=== PATIENT | female | born 1985 | race Caucasian/White ===

== ENCOUNTER 2020-05-05 17:06 | Emergency (ER) | payer BC, SELFPAY ==
[2020-05-05] MEDS ORDERED: DIPHENHYDRAMINE 50 MG/ML VIAL ONE (19:55)
[2020-05-05] MEDS ORDERED: METOCLOPRAMIDE 10 MG/2mL INJ ONE (19:55)
[2020-05-05] MEDS ORDERED: dexAMETHasone 10 MG/ML VIAL ONE (19:56)
[2020-05-05] MEDS ORDERED: ONDANSETRON 4 MG/2 ML VIAL ONE (19:56)
[2020-05-05] MEDS ORDERED: NA CHLORIDE 0.9% 1,000 ML ONE (19:56)
[2020-05-05 20:12] LABS: Absolute Lymphocytes (CBC) 1.4 K/uL (0.7-4.9); Basophils % 0.5 % (0-1.3); Hematocrit 42.3 % (36.0-45.0); Lymphocytes % 12.1 % (15.3-44.8); MPV 7.5 fL (7.6-11.3); RBC Red Blood Cell Count 5.07 M/uL (3.86-4.86)
[2020-05-05 20:28] LABS: BUN Blood Urea Nitrogen 8 mg/dL (7-18); Bicarbonate 27 mmol/L (21-32); Glucose Level 173 mg/dL (74-106); Potassium 3.8 mmol/L (3.5-5.1); Sodium Level 139 mmol/L (136-145)
[2020-05-05 20:31] LABS: Urine Blood 1+ (Negative); Urine Glucose NEGATIVE (Negative); Urine Protein 1+ (NEG); Urine Specific Gravity 1.025 (1.005-1.030); Urine Specific Gravity/Preg 1.025 (1.005-1.030)
[2020-05-05 20:56] LABS: Urine Amorphous Sediment 3+ /HPF (NONE SEEN); Urine Bacteria >50 /HPF (<20); Urine Mucus 2+ /HPF (NONE SEEN); Urine RBC 20-50 /HPF (NONE SEEN)
--- NOTE | 2020-05-05 21:18 | RAD REPORT ---
EXAM DESCRIPTION: CT - Head Brain Wo Cont - 05/05/2020 9:11 pm CLINICAL HISTORY: elevated blood pressure;Headache COMPARISON: HEAD BRAIN W O CONTRAST dated 03/14/2014 TECHNIQUE: Axial 5 mm thick images of the head were obtained without IV contrast. All CT scans are performed using dose optimization technique as appropriate and may include automated exposure control or mA/KV adjustment according to patient size. FINDINGS: No intracranial hemorrhage, mass, edema or shift of mid-line structures. No acute infarcti on changes seen. No abnormal extra-axial fluid collections. Ventricles are normal. Mastoid air cells and visualized portions of the paranasal sinuses are clear. No acute bony findings. No significant change from comparison. IMPRESSION: Negative non-contrast CT head examination.
--- NOTE | 2020-05-05 21:42 | ER ---
Nurse's Notes [facility] Name: Caleb Cuevas Age: 34 yrs Sex: Female : 1985 Arrival Date: 05/05/2020 Time: 17:09 Bed 14 Private MD: Diagnosis: Headache;Urinary tract infection, site not specified Presentation: 05/05 17:43 Chief complaint: Patient states: Headache, pressure behind the R eye, stabbing pain ca1 behind the R eyeball. Causing me to throw up. Today it started around 1300 - 1400. I had a migraine yesterday but it went away. Been here before for exactly the same thing, and am here now before it gets worse. Coronavirus screen: Client denies travel out of the [place] in the last 14 days. nausea, vomiting. Client presents with at least one sign or symptom that may indicate coronavirus-19. Standard/surgical mask placed on the client. Provider contacted for isolation considerations. Ebola Screen: Patient negative for fever greater than or equal to 101.5 degrees Fahrenheit, and additional compatible Ebola Virus Disease symptoms Patient denies exposure to infectious person. Patient denies travel to an Ebola-affected area in the 21 days before illness onset. No symptoms or risks identified at this time. Initial Sepsis Screen: Does the patient meet any 2 criteria? No. Patient's initial sepsis screen is negative. Does the patient have a suspected source of infection? No. Patient's initial sepsis screen is negative. Risk Assessment: Do you want to hurt yourself or someone else? Patient reports no desire to harm self or others. Onset of symptoms was May 05, 2020. 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 - Social history:: Smoking status: Patient denies any tobacco usage or history of. Assessment: 19:10 Pain: Complains of pain in right eye Pain radiates to right occipital area Pain jb4 currently is 8 out of 10 on a pain scale. Neuro: Level of Consciousness is awake, alert, obeys commands, Oriented to person, place, time, situation. Cardiovascular: Patient's skin is warm and dry. Respiratory: Airway is patent Respiratory effort is even, unlabored, Respiratory pattern is regular, symmetrical. GI: Reports nausea, vomiting. : No signs and/or symptoms were reported regarding the genitourinary system. EENT: No signs and/or symptoms were reported regarding the EENT system. Derm: Skin is intact, Skin is pink, warm \T\ dry. Musculoskeletal: Circulation, motion, and sensation intact. Range of motion: intact in all extremities. 19:10 General: Appears in no apparent distress. comfortable, Behavior is calm, cooperative, jb4 appropriate for age. 20:25 Reassessment: Patient appears in no apparent distress at this time. Patient and/or jb4 family updated on plan of care and expected duration. Pain level reassessed. Pt is resting in bed with eyes closed, respirations are even and unlabored with no s/s of pain or distress noted. 21:19 Reassessment: Patient appears in no apparent distress at this time. Patient and/or jb4 family updated on plan of care and expected duration. Pain level reassessed. Patient is alert, oriented x 3, equal unlabored respirations, skin warm/dry/pink. Vital Signs: 17:43 BP 153 / 103; Pulse 99; Resp 18 S; Temp 99(TE); Pulse Ox 96% on R/A; Weight 131.54 kg ca1 (R); Height 5 ft. 7 in. (170.18 cm) (R); Pain 8/10; 20:20 BP 136 / 86; Pulse 86; Resp 16; Pulse Ox 96% on 2 lpm NC; jb4 21:15 BP 133 / 85; Pulse 99; Resp 16; Pulse Ox 95% on R/A; jb4 17:43 Body Mass Index 45.42 (131.54 kg, 170.18 cm) ca1 ED Course: 17:09 Patient arrived in ED. am2 17:46 Triage completed. ca1 17:48 Arm band placed on right wrist. ca1 19:07 Steven Marie PA is PHCP. cp 19:07 Agus Herron MD is Attending Physician. cp 19:23 Hilda Carmichael MD is Attending Physician. cp 19:27 Poncho Cervantes, RN is Primary Nurse. jb4 21:11 CT Head Brain wo Cont In Process Unspecified. EDMS 21:40 Jamie Huggins MD is Referral Physician. cp Administered Medications: 19:51 Drug: NS 0.9% 1000 ml Route: IV; Rate: 1 bolus; Site: left antecubital; jb4 22:05 Follow up: Response: No adverse reaction; IV Status: Completed infusion; IV Intake: jb4 1000ml 19:51 Drug: Zofran (Ondansetron) 4 mg Route: IVP; Site: left antecubital; jb4 20:30 Follow up: Response: No adverse reaction; Marked relief of symptoms jb4 19:55 Drug: Reglan 10 mg Route: IVP; Site: left antecubital; jb4 20:30 Follow up: Response: No adverse reaction; Marked relief of symptoms jb4 19:57 Drug: Decadron - Dexamethasone 10 mg Route: IVP; Site: left antecubital; jb4 21:30 Follow up: Response: No adverse reaction; Marked relief of symptoms jb4 19:58 Drug: Benadryl 25 mg Route: IVP; Site: left antecubital; jb4 20:30 Follow up: Response: No adverse reaction; Marked relief of symptoms jb4 21:54 Drug: Rocephin - (cefTRIAXone) 1 grams {Note: Given IVP per pharmacy protocol and jb4 Providers instructions..} Route: IVPB; Infused Over: 30 mins; Site: left antecubital; 21:57 Follow up: Response: No adverse reaction; IV Status: Completed infusion; IV Intake: [id number] Intake: 21:57 IV: 10ml; Total: 10ml. jb4 22:05 IV: 1000ml; Total: 1010ml. jb4 Outcome: 21:41 Discharge ordered by . cp 22:05 Patient left the ED. jb4 Signatures: Dispatcher [employer] EDOK Steven Marie PA PA cp Bryson, James, RN RN jb4 Nuha Nur am2 Padmini Del Valle RN RN ca1 Corrections: (The following items were deleted from the chart) 20:23 20:07 General: Appears in no apparent distress. uncomfortable, Behavior is calm, jb4 cooperative, appropriate for age, jb4 20:23 20:07 Pain: Complains of pain in right eye Pain radiates to right occipital area Pain jb4 currently is 8 out of 10 on a pain scale. jb4 20:23 20:07 Neuro: Level of Consciousness is awake, alert, obeys commands, Oriented to jb4 person, place, time, situation, jb4 20: 20:07 Cardiovascular: Patient's skin is warm and dry. jb4 jb4 20:23 20:07 Respiratory: Airway is patent Respiratory effort is even, unlabored, Respiratory jb4 pattern is regular, symmetrical, jb4 20:23 20:07 GI: Reports nausea, vomiting, jb4 jb4 : 20:07 : No signs and/or symptoms were reported regarding the genitourinary system. [id number] 20: 20:07 EENT: No signs and/or symptoms were reported regarding the EENT system. jb4 jb4 :23 20:07 Derm: Skin is intact, Skin is pink, warm \T\ dry. jb4 jb4 :23 20:07 Musculoskeletal: Circulation, motion, and sensation intact. Range of motion: jb4 intact in all extremities, jb4 22:05 21:00 IV Status: Completed infusion jb4 jb4
--- NOTE | 2020-05-05 21:42 | EDPHYS ---
Physician Documentation [facility] Name: Caleb Cuevas Age: 34 yrs Sex: Female : 1985 Arrival Date: 05/05/2020 Time: 17:09 Bed 14 Private MD: ED Physician Hilda Carmichael HPI: 05/05 19:30 This 34 yrs old Female presents to ER via Ambulatory with complaints of cp Headache, Nausea. 19:30 The patient complains of pain to the right side of head and behind right eye. cp 19:30 The patient describes the headache as constant. Onset: The symptoms/episode cp began/occurred today. 19:30 Associated signs and symptoms: Pertinent positives: nausea, Photophobia vomiting. cp Severity of symptoms: in the emergency department the pain a " 7" out of "10". Headache History: The patient has had previous headaches and this one is similar to previous episodes. 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 - Social history:: Smoking status: Patient denies any tobacco usage or history of. ROS: 19:35 Neuro: Positive for headache, Negative for altered mental status, dizziness, syncope, cp weakness. 19:35 Constitutional: Negative for body aches, chills, fever, poor PO intake. cp 19:35 Eyes: Positive for photophobia, Negative for vision loss. 19:35 ENT: Negative for drainage from ear(s), ear pain, sinus pain, sore throat, difficulty swallowing, difficulty handling secretions. 19:35 Neck: Negative for pain with movement, pain at rest, stiffness. 19:35 Cardiovascular: Negative for chest pain, palpitations. 19:35 Respiratory: Negative for cough, shortness of breath, wheezing. 19:35 Abdomen/GI: Positive for nausea and vomiting, Negative for diarrhea, constipation. 19:35 All other systems are negative. Exam: 19:45 Constitutional: The patient appears in no acute distress, alert, awake, cp non-diaphoretic, non-toxic, well developed, well nourished. 19:45 Head/Face: Normocephalic, atraumatic. cp 19:45 Eyes: Periorbital structures: appear normal, Pupils: equal, round, and reactive to light and accomodation, Extraocular movements: intact throughout, Conjunctiva: normal, no exudate, no injection, Sclera: no appreciated abnormality, Lids and lashes: appear normal, bilaterally. 19:45 ENT: External ear(s): are unremarkable, Nose: is normal, Mouth: Lips: moist, Oral mucosa: moist, Posterior pharynx: Airway: no evidence of obstruction, patent. 19:45 Neck: ROM/movement: is normal, is supple, without pain, no range of motions limitations, no meningismus. 19:45 Chest/axilla: Inspection: normal, Palpation: is normal, no crepitus, no tenderness. 19:45 Cardiovascular: Rate: normal, Rhythm: regular. 19:45 Respiratory: the patient does not display signs of respiratory distress, Respirations: normal, no use of accessory muscles, no retractions, labored breathing, is not present, Breath sounds: are clear throughout, no decreased breath sounds. 19:45 Abdomen/GI: Exam negative for discomfort, distension, guarding, Inspection: abdomen appears normal. 19:45 Back: pain, is absent, ROM is normal. 19:45 Neuro: Orientation: to person, place \\T\\ time. Mentation: is normal, Cerebellar function: is grossly normal, Motor: moves all fours, strength is normal, Sensation: is normal. Vital Signs: 17:43 BP 153 / 103; Pulse 99; Resp 18 S; Temp 99(TE); Pulse Ox 96% on R/A; Weight 131.54 kg ca1 (R); Height 5 ft. 7 in. (170.18 cm) (R); Pain 8/10; 20:20 BP 136 / 86; Pulse 86; Resp 16; Pulse Ox 96% on 2 lpm NC; jb4 21:15 BP 133 / 85; Pulse 99; Resp 16; Pulse Ox 95% on R/A; jb4 17:43 Body Mass Index 45.42 (131.54 kg, 170.18 cm) ca1 MDM: 19:09 Patient medically screened. cp 21:40 Data reviewed: vital signs, nurses notes, lab test result(s), radiologic studies, CT cp scan, and as a result, I will discharge patient. 21:40 Counseling: I had a detailed discussion with the patient and/or guardian regarding: the cp historical points, exam findings, and any diagnostic results supporting the discharge/admit diagnosis, lab results, radiology results, the need for outpatient follow up, a neurologist, to return to the emergency department if symptoms worsen or persist or if there are any questions or concerns that arise at home. Response to treatment: the patient's symptoms have markedly improved after treatment, Patient reports pain and nausea markedly improved, and as a result, I will discharge patient. 05/05 19:21 Order name: CBC with Diff 05/05 19: Order name: BMP; Complete Time: 21:19 cp 05/05 19:21 Order name: Urine Microscopic Only; Complete Time: 21:19 cp 05/05 19:22 Order name: CBC with Automated Diff; Complete Time: 20:23 EDMS 05/05 20:23 Interpretation: Normal except: WBC 11.50; RBC 5.07; MPV 7.5; JASON% 83.3; LYM% 12.1; NEUT cp A 9.6. 05/05 20:23 Order name: Urine --Ancillary (enter results); Complete Time: 21:19 ds4 05/05 20:23 Order name: Urine Dipstick--Ancillary (enter results); Complete Time: 21:19 ds4 05/05 20:23 Order name: CT Head Brain wo Cont; Complete Time: 21:19 cp 05/05 21:20 Interpretation: Report reviewed. 05/05 20:57 Order name: Urine Culture [facility] 05/05 19:21 Order name: Urine Dipstick-Ancillary (obtain specimen); Complete Time: 20:19 cp 05/05 19:21 Order name: Urine Test (obtain specimen); Complete Time: 20:19 cp 05/05 19:21 Order name: IV; Complete Time: 20:07 cp 05/05 21:37 Order name: PO challenge; Complete Time: 21:54 cp Administered Medications: 19:51 Drug: NS 0.9% 1000 ml Route: IV; Rate: 1 bolus; Site: left antecubital; jb4 22:05 Follow up: Response: No adverse reaction; IV Status: Completed infusion; IV Intake: jb4 1000ml 19:51 Drug: Zofran (Ondansetron) 4 mg Route: IVP; Site: left antecubital; jb4 20:30 Follow up: Response: No adverse reaction; Marked relief of symptoms jb4 19:55 Drug: Reglan 10 mg Route: IVP; Site: left antecubital; jb4 20:30 Follow up: Response: No adverse reaction; Marked relief of symptoms jb4 19:57 Drug: Decadron - Dexamethasone 10 mg Route: IVP; Site: left antecubital; jb4 21:30 Follow up: Response: No adverse reaction; Marked relief of symptoms jb4 19:58 Drug: Benadryl 25 mg Route: IVP; Site: left antecubital; jb4 20:30 Follow up: Response: No adverse reaction; Marked relief of symptoms jb4 21:54 Drug: Rocephin - (cefTRIAXone) 1 grams {Note: Given IVP per pharmacy protocol and jb4 Providers instructions..} Route: IVPB; Infused Over: 30 mins; Site: left antecubital; 21:57 Follow up: Response: No adverse reaction; IV Status: Completed infusion; IV Intake: [id number] Disposition: 22:10 Chart complete. cp 05/06 00:19 Co-signature as Attending Physician, Hilda Carmichael MD. mn2 Disposition: 05/05/20 21:41 Discharged to Home. Impression: Headache, Urinary tract infection, site not specified. - Condition is Stable. - Discharge Instructions: Migraine Headache, Urinary Tract Infection, Adult. - Prescriptions for Fiorinal 50- 325-40 mg Oral Capsule - take 1 capsule by ORAL route every 4 hours As needed - not to exceed 6 capsules per day; 20 capsule. Zofran 4 mg Oral Tablet - take 1 tablet by ORAL route every 12 hours As needed; 20 tablet. Bactrim DS 800- 160 mg Oral Tablet - take 1 tablet by ORAL route every 12 hours for 7 days; 14 tablet. - Medication Reconciliation Form, Thank You Letter, Antibiotic Education, Prescription Opioid Use form. - Follow up: Jamie Huggins MD; When: 1 - 2 days; Reason: Recheck today's complaints. - Problem is new. - Symptoms have improved. Signatures: Dispatcher [employer] EDMS Steven Marie PA PA cp Poncho Cervantes RN RN jb4 Hilda Carmichael MD MD ma2 Padmini Del Valle RN RN ca1 Corrections: (The following items were deleted from the chart) 05/05 22:05 21:41 05/05/2020 21:41 Discharged to Home. Impression: Headache; Urinary tract jb4 infection, site not specified. Condition is Stable. Forms are Medication Reconciliation Form, Thank You Letter, Antibiotic Education, Prescription Opioid Use. Follow up: Jamie Huggins; When: 1 - 2 days; Reason: Recheck today's complaints. Problem is new. Symptoms have improved. cp
[2020-05-05] MEDS ORDERED: CEFTRIAXONE/SWI 1gm 1 GM/10 ML SYR ONE (22:05)
[2020-05-06 00:42] VITALS: TEMP 99
[2020-05-06 00:46] VITALS: BP 133/85; O2SAT 95
== END 2020-05-05 22:05 | disposition home or self-care (01) ==
LOC: ER 17:06
DX: N39.0 Urinary tract infection, site not specified (principal)
CPT/HCPCS: 36415; 70450; 80048; 81003; 81015; 81025; 85025; 87086; 87088; 96361; 96374; 96375; 99283; J0696; J1100; J1200; J2405; J2765; J7030

== ENCOUNTER 2022-12-03 00:52 | Emergency (ER) | payer SELFPAY ==
--- NOTE | 2022-12-03 01:27 | EDPHYS ---
Physician Documentation [facility] Name: Caleb Cuevas Age: 36 yrs Sex: Female : 1985 Arrival Date: 12/03/2022 Time: 00:52 Bed 6 Private MD: ED Physician Aurelio King HPI: 12/03 01:30 This 36 yrs old Female presents to ER via Ambulatory with complaints of Hernia pain. snw 01:30 The patient presents with pt with known hernia at umbilicus, today the area protruded snw but is now reduced. Pt will f/u PCP and General surgery. Abdominal pain warnings given and pt voices understanding. 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 - Social history:: Smoking status: Patient denies any tobacco usage or history of. ROS: 01:28 Constitutional: Negative for fever, chills, and weight loss, Eyes: Negative for injury, snw pain, redness, and discharge, ENT: Negative for injury, pain, and discharge, Neck: Negative for injury, pain, and swelling, Cardiovascular: Negative for chest pain, palpitations, and edema, Respiratory: Negative for shortness of breath, cough, wheezing, and pleuritic chest pain, Back: Negative for injury and pain, : Negative for injury, bleeding, discharge, and swelling, MS/Extremity: Negative for injury and deformity, Skin: Negative for injury, rash, and discoloration, Neuro: Negative for headache, weakness, numbness, tingling, and seizure, Psych: Negative for depression, anxiety, suicide ideation, homicidal ideation, and hallucinations, 01:28 Abdomen/GI: Positive for abdominal pain, periumbilical pain with "hernia protruding, when taking a deep breath it would shoot pain up into my chest, but it is back in now and I don't have any pain", Exam: 01:28 Constitutional: This is a well developed, well nourished patient who is awake, alert, snw and in no acute distress. Head/Face: Normocephalic, atraumatic. Eyes: Pupils equal round and reactive to light, extra-ocular motions intact. Lids and lashes normal. Conjunctiva and sclera are non-icteric and not injected. Cornea within normal limits. Periorbital areas with no swelling, redness, or edema. ENT: Nares patent. No nasal discharge, no septal abnormalities noted. Tympanic membranes are normal and external auditory canals are clear. Oropharynx with no redness, swelling, or masses, exudates, or evidence of obstruction, uvula midline. Mucous membranes moist. Neck: Trachea midline, no thyromegaly or masses palpated, and no cervical lymphadenopathy. Supple, full range of motion without nuchal rigidity, or vertebral point tenderness. No Meningismus. Chest/axilla: Normal chest wall appearance and motion. Nontender with no deformity. No lesions are appreciated. Cardiovascular: Regular rate and rhythm with a normal S1 and S2. No gallops, murmurs, or rubs. Normal PMI, no JVD. No pulse deficits. Respiratory: Lungs have equal breath sounds bilaterally, clear to auscultation and percussion. No rales, rhonchi or wheezes noted. No increased work of breathing, no retractions or nasal flaring. Back: No spinal tenderness. No costovertebral tenderness. Full range of motion. 01:28 Skin: Warm, dry with normal turgor. Normal color with no rashes, no lesions, and no evidence of cellulitis. MS/ Extremity: Pulses equal, no cyanosis. Neurovascular intact. Full, normal range of motion. Neuro: Awake and alert, GCS 15, oriented to person, place, time, and situation. Cranial nerves II-XII grossly intact. Motor strength 5/5 in all extremities. Sensory grossly intact. Cerebellar exam normal. Normal gait. Psych: Awake, alert, with orientation to person, place and time. Behavior, mood, and affect are within normal limits. 01:28 Abdomen/GI: Inspection: obese Bowel sounds: normal, Palpation: abdomen is soft and non-tender, Vital Signs: 01:04 BP 137 / 87; Pulse 100; Resp 17; Temp 98.7; Pulse Ox 100% ; Weight 124.74 kg; Pain 0/10;ap3 01:30 BP 129 / 73; Pulse 89; Resp 16; Pulse Ox 96% on R/A; nw1 01:04 Pain Scale: Adult ap3 [place] Coma Score: 01:30 Eye Response: spontaneous(4). Motor Response: obeys commands(6). Verbal Response: nw1 oriented(5). Total: 15. MDM: 01:00 Patient medically screened. snw 01:27 Differential diagnosis: hernia, incarcerated, strangulated. Data reviewed: vital signs, snw nurses notes. Counseling: I had a detailed discussion with the patient and/or guardian regarding the historical points, exam findings, and any diagnostic results supporting the discharge/admit diagnosis, the need for outpatient follow up, to return to the emergency department if symptoms worsen or persist or if there are any questions or concerns that arise at home. Special discussion: Based on the patient's Hx, exam, and Dx evaluation, there is no indication for emergent surgery or inpatient Tx. It is understood by the patient/guardian that if the Sx's persist or worsen they need to return immediately for re-evaluation. Based on the history and exam findings, there is no indication for further emergent testing or inpatient evaluation. I discussed with the patient/guardian the need to see the general surgeon for further evaluation of the symptoms. I discussed with the patient/guardian the need to see the primary care provider for further evaluation of the symptoms. Administered Medications: No medications were administered Disposition: 02:03 I was immediately available on-site in the Emergency Department for consultation in the vt3 care of the patient. Disposition Summary: 12/03/22 01:27 Discharge Ordered Notes: Location: Home snw Condition: Stable snw Diagnosis - Umbilical hernia without obstruction or gangrene snw Followup: snw - With: Emergency Department - When: As needed - Reason: Worsening of condition Followup: snw - With: Private Physician - When: 2 - 3 days - Reason: Recheck today's complaints, Continuance of care, Re-evaluation by your physician Discharge Instructions: - Discharge Summary Sheet snw - Abdominal Pain, Adult snw - Hernia, Adult snw - Open Hernia Repair, Adult, Care After snw Forms: - Medication Reconciliation Form snw - Thank You Letter snw - Antibiotic Education snw - Prescription Opioid Use snw - Patient Portal Instructions snw - Leadership Thank You Letter snw Signatures: Puja Irving FNP-C FNP-Csnw Nuha Goodman RN RN ap3 King, Aurelio, DO DO ms3
--- NOTE | 2022-12-03 01:27 | ER ---
Nurse's Notes [facility] Name: Caleb Cuevas Age: 36 yrs Sex: Female : 1985 Arrival Date: 12/03/2022 Time: 00:52 Bed 6 Private MD: Diagnosis: Umbilical hernia without obstruction or gangrene Presentation: 12/03 01:04 Chief complaint: Patient states: she has an existing hernia, and she was playing with ap3 her children this evening. approx 45 minutes prior to her arrival, patient was experiencing pain where her hernia is located that radiated up into her chest. patient reports that her pain has since gone away. Coronavirus screen: At this time, the client does not indicate any symptoms associated with coronavirus-19. Ebola Screen: No symptoms or risks identified at this time. Initial Sepsis Screen: Does the patient meet any 2 criteria? No. Patient's initial sepsis screen is negative. Does the patient have a suspected source of infection? No. Patient's initial sepsis screen is negative. Risk Assessment: Do you want to hurt yourself or someone else? Patient reports no desire to harm self or others. Onset of symptoms was December 03, 2022 at 00:15. 01:04 Method Of Arrival: Ambulatory ap3 01:04 Acuity: JOO 3 ap3 Triage Assessment: 01:08 General: Appears in no apparent distress. Behavior is calm, cooperative, appropriate ap3 for age. Pain: Complains of pain in abdomen Pain radiates to chest Pain began 1 hour ago. Neuro: Level of Consciousness is awake, alert, obeys commands, Oriented to person, place, time, situation. Cardiovascular: Patient's skin is warm and dry. Respiratory: Airway is patent Respiratory effort is even, unlabored, Respiratory pattern is regular, symmetrical. 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 - Social history:: Smoking status: Patient denies any tobacco usage or history of. Screenin:08 [facility] ED Fall Risk Assessment (Adult) History of falling in the last 3 months, ap3 including since admission No falls in past 3 months (0 pts). Abuse screen: Denies threats or abuse. Nutritional screening: No deficits noted. Tuberculosis screening: No symptoms or risk factors identified. Assessment: 01:30 GI: Reports abdominal hernia when playing and picking up children that happened approx nw1 1.5 hours ago. 0 s/s of acute distress noted at this time. Vital Signs: 01:04 BP 137 / 87; Pulse 100; Resp 17; Temp 98.7; Pulse Ox 100% ; Weight 124.74 kg; Pain 0/10;ap3 01:30 BP 129 / 73; Pulse 89; Resp 16; Pulse Ox 96% on R/A; nw1 01:04 Pain Scale: Adult ap3 Edouard Coma Score: 01:30 Eye Response: spontaneous(4). Motor Response: obeys commands(6). Verbal Response: nw1 oriented(5). Total: 15. ED Course: 00:56 Patient arrived in ED. jj6 00:57 Puja Irving [facility]C [facility]. snw 00:57 Aurelio King DO is Attending Physician. snw 01:07 Triage completed. ap3 01:08 Arm band placed on right wrist. ap3 01:09 Patient has correct armband on for positive identification. Bed in low position. Call ap3 light in reach. Side rails up X 1. Pulse ox on. NIBP on. Door closed. Noise minimized. 01:30 Provided Education on: POC. nw1 01:30 No provider procedures requiring assistance completed. Patient did not have IV access nw1 during this emergency room visit. 01:38 Santos De La Vega RN is Primary Nurse. la4 Administered Medications: No medications were administered Medication: 01:30 VIS not applicable for this client. nw1 Outcome: 01:27 Discharge ordered by . snw 01:38 Discharged to home ambulatory, with family, la4 01:38 Condition: stable 01:38 Discharge instructions given to patient, Instructed on discharge instructions, follow up and referral plans. 01:46 Patient left the ED. nw1 Signatures: Puja Irving FNP-C FNP-CsnNuha Waggoner RN RN ap3 Yolanda León jj6 Santos De La Vega RN RN la4 Matti, Brooke, RN RN nw1
== END 2022-12-03 01:46 | disposition home or self-care (01) ==
LOC: ER 00:52
DX: K42.9 Umbilical hernia without obstruction or gangrene (principal)

== ENCOUNTER 2023-10-28 12:45 | Emergency (ER) | payer SELFPAY ==
--- OUTSIDE RECORDS SUMMARY | 2023-10-28 12:49 | XMS REPORT | Continuity of Care Document ---
Author Name Unknown Address [address] [place] [address] thconnect Address [address] [place] [address] [place] [address] Care Team Providers Care Health And Safety Manager Name Role Phone [email or web address] Attending Clinician Unavaila ble [email or web address] Admitting Clinician Unavaila ble Encounters Start Date/Time End Date/Time Encounter Type Admission Type Attending Clinicians Care Facility Care Department Encounter ID Source 2022-12-12 00:00:00 2022-12-12 00:00:00 Outpatient [email or web address] [facility] [id number] [facility]
--- NOTE | 2023-10-28 15:20 | RAD REPORT ---
EXAMINATION: US RIGHT LOWER EXTREMITY VENOUS DOPPLER CLINICAL INDICATION: [facility] MAIN right leg Pain;Swelling Bed Name: 10 Y TECHNIQUE: Complete bilateral duplex sonography of the RIGHT lower extremity veins was performed. The examination included compression for vein patency, color Doppler imaging and flow augmentation in response to distal compression of the distal external iliac, common femoral, femoral, popliteal, tibi al, and great and small saphenous veins. COMPARISON: No prior exam. FINDINGS: Duplex sonography testing of the veins of the RIGHT lower extremity was performed. Color flow imaging shows all veins to be compressible with [id number] color filling. Pulsatile and phasic flow is present within all lower extremity deep and superficial veins examined. IMPRESSION: There is no deep vein or superficial vein thrombosis.
--- NOTE | 2023-10-28 15:31 | RAD REPORT ---
EXAM: Ultrasound extremity nonvascular Limited HISTORY: [facility] MAIN R hematoma? right thigh Bed Name: 10 COMPARISON: Right knee radiographs of the same day TECHNIQUE: Grayscale and color flow images of the right knee were performed. FINDINGS: A crescentic elongated well-circumscribed anechoic fluid collection is present along the lower latera l thigh and lateral aspect of the knee, measuring 7.4 x 6.1 x 1.7 cm in greatest dimensions. No evidence of dictations for debris. No solid components. No surrounding hypervascularity. IMPRESSION: Simple appearing large fluid collection up to 7.4 cm along the lateral aspect of the distal thigh/kne e corresponding to the palpable abnormality. The appearance suggests a seroma or possibly a chronic hematoma, with no complex features.
--- NOTE | 2023-10-28 15:52 | RAD REPORT ---
EXAM: Knee Right 3 View HISTORY: Knee pain COMPARISON: None TECHNIQUE: 3 views of the right knee were obtained. FINDINGS: Large knee effusion is seen. There is no evidence of acute fracture or dislocation. Mild d egenerative changes are seen. No soft tissue swelling is present. IMPRESSION: No evidence of acute osseous abnormality. Large joint effusion is noted.
--- NOTE | 2023-10-28 16:02 | ER ---
Nurse's Notes [facility] Name: Caleb Cuevas Age: 37 yrs Sex: Female : 1985 Arrival Date: 10/28/2023 Time: 12:45 Bed 10 Private MD: Diagnosis: Other bursitis of knee, right knee Presentation: 10/27 13:01 Chief complaint: Patient states: Right leg swelling X1 week. Pt reports that the cm10 swelling began on her knee and now it her calf is started to swell. No trauma or injury. Coronavirus screen: Client denies travel out of the [place] in the last 14 days. At this time, the client does not indicate any symptoms associated with coronavirus-19. Ebola Screen: Patient denies travel to an Ebola-affected area in the 21 days before illness onset. No symptoms or risks identified at this time. Initial Sepsis Screen: Does the patient meet any 2 criteria? No. Patient's initial sepsis screen is negative. Does the patient have a suspected source of infection? No. Patient's initial sepsis screen is negative. Risk Assessment: Do you want to hurt yourself or someone else? Patient reports no desire to harm self or others. Onset of symptoms was October 28, 2023. 13:01 Method Of Arrival: Ambulatory cm10 13:01 Acuity: JOO 4 cm10 Triage Assessment: 13:03 General: Appears in no apparent distress. comfortable, Behavior is calm, cooperative. cm10 Pain: Complains of pain in right leg Pain does not radiate. Pain currently is 2 out of 10 on a pain scale. Neuro: No deficits noted. Level of Consciousness is awake, alert, obeys commands, Oriented to person, place, time, situation, Appropriate for age. Respiratory: No deficits noted. Airway is patent Respiratory effort is even, unlabored, Respiratory pattern is regular, symmetrical. Historical: - Allergies: 13:03 No Known Allergies; cm10 - Home Meds: 13:03 Ozempic subcutaneous every week [Active]; cm10 - PMHx: 13:03 PCOS; cm10 - Immunization history:: Adult Immunizations up to date. - Infectious Disease History:: Denies. - Social history:: Smoking status: Patient denies any tobacco usage or history of. Screenin:55 [facility] ED Fall Risk Assessment (Adult) History of falling in the last 3 months, mb9 including since admission No falls in past 3 months (0 pts) Confusion or Disorientation No (0 pts) Intoxicated or Sedated No (0 pts) Impaired Gait No (0 pts) Mobility Assist Device Used No (0 pt) Altered Elimination No (0 pt) Score/Fall Risk Level 0 - 2 = Low Risk Oriented to surroundings, Maintained a safe environment, Educated pt \T\ family on fall prevention, incl call for assistance when getting out of bed. Abuse screen: Denies threats or abuse. Nutritional screening: No deficits noted. Tuberculosis screening: No symptoms or risk factors identified. Assessment: 13:56 General: Appears in no apparent distress. Behavior is calm, cooperative. Pain: mb9 Complains of pain in right leg. Neuro: Level of Consciousness is awake, alert, obeys commands, Oriented to person, place, time, situation, Appropriate for age. Cardiovascular: Patient's skin is warm and dry. Respiratory: Airway is patent Respiratory effort is even, unlabored, Respiratory pattern is regular, symmetrical. GI: No signs and/or symptoms were reported involving the gastrointestinal system. : No signs and/or symptoms were reported regarding the genitourinary system. EENT: No signs and/or symptoms were reported regarding the EENT system. Derm: Skin is pink, warm \T\ dry. Musculoskeletal: Range of motion: intact in all extremities. 15:51 Reassessment: No changes from previously documented assessment. Patient and/or family mb9 updated on plan of care and expected duration. Pain level reassessed. Patient is alert, oriented x 3, equal unlabored respirations, skin warm/dry/pink. Vital Signs: 13:01 BP 121 / 72; Pulse 88; Resp 16; Temp 97.4(IR); Pulse Ox 98% on R/A; Weight 96.62 kg; cm10 Height 5 ft. 6 in. ; Pain 2/10; 15:51 BP 118 / 74; Pulse 84; Resp 18; Pulse Ox 100% on R/A; mb9 13:01 Body Mass Index 34.38 (96.62 kg, 167.64 cm) cm10 13:01 Pain Scale: Adult cm10 ED Course: 12:49 Patient arrived in ED. im 12:51 Kendy Merchant PA-C is PHCP. sb4 12:51 Joann Hurtado MD is Attending Physician. sb4 13:02 Triage completed. cm10 13:04 Arm band placed on Patient placed in an exam room, on a stretcher. cm10 13:54 Stefanie Frost, RN is Primary Nurse. mb9 13:56 Placed in gown. Bed in low position. Call light in reach. Side rails up X 1. Provided mb9 Education on: press call light if needing anything. Client placed on continuous cardiac and pulse oximetry monitoring. NIBP monitoring applied. 13:56 No provider procedures requiring assistance completed. mb9 14:11 Extremity Venous Uni Ltd US In Process Unspecified. EDMS 14:11 US Extrmty Nonvasular Limited In Process Unspecified. EDMS 14:49 Knee Right 3 View XRAY In Process Unspecified. EDMS 16:01 Shoaib Romano MD is Referral Physician. sb4 16:09 Patient did not have IV access during this emergency room visit. mb9 Administered Medications: No medications were administered Medication: 13:57 VIS not applicable for this client. mb9 Outcome: 16:01 Discharge ordered by . sb4 16:09 Discharged to home ambulatory, mb9 16:09 Condition: stable 16:09 Discharge instructions given to patient, Instructed on discharge instructions, follow up and referral plans. Demonstrated understanding of instructions, follow-up care, medications, Prescriptions given X 2, 16:09 Patient left the ED. mb9 Signatures: Dispatcher [employer] Kendy Quiros PA-C PA-C sb4 Stefanie Frost, RN RN mb9 Evelyn Powers Clarissa, RN RN cm10 Corrections: (The following items were deleted from the chart) 13:03 13:03 PMHx: Diabetes mellitus; cm10 cm10
--- NOTE | 2023-10-28 16:02 | EDPHYS ---
Physician Documentation [facility] Name: Caleb Cuevas Age: 37 yrs Sex: Female : 1985 Arrival Date: 10/28/2023 Time: 12:45 Bed 10 Private MD: ED Physician Joann Hurtado HPI: 10/27 13:54 This 37 yrs old Female presents to ER via Ambulatory with complaints of Leg Swelling - sb4 right. 14:09 The patient presents with swelling. The complaints affect the right quadriceps and sb4 right knee. Patient reports swelling in her right thigh right above her knee that started a few days ago. She denies any injury. States that she had "preacher's knee "a few years back but it was not swollen just painful. She denies any redness to the area. Denies any history of blood clots, does not smoke, is not on any OCPs, no recent travel. Historical: - Allergies: 13:03 No Known Allergies; cm10 - Home Meds: 13:03 Ozempic subcutaneous every week [Active]; cm10 - PMHx: 13:03 PCOS; cm10 - Immunization history:: Adult Immunizations up to date. - Infectious Disease History:: Denies. - Social history:: Smoking status: Patient denies any tobacco usage or history of. ROS: 14:09 Constitutional: Negative for fever, chills, and weight loss, sb4 14:09 MS/extremity: Positive for pain, swelling, of the right knee and right quadriceps, 14:09 All other systems are negative, Exam: 14:09 Constitutional: This is a well developed, well nourished patient who is awake, alert, sb4 and in no acute distress. Head/Face: Normocephalic, atraumatic. Eyes: Extra-ocular motions intact. Periorbital areas with no swelling, redness, or edema. ENT: Mucous membranes moist. 14:09 Musculoskeletal/extremity: ROM: full active range of motion, full passive range of motion, Circulation is intact in all extremities. Pulses: Perfusion: the extremity is normally perfused throughout, Sensation intact. Weight bearing: able to fully bear weight, swelling/fluid collection noted superior-lateral to right knee. no redness or warmth. Vital Signs: 13:01 BP 121 / 72; Pulse 88; Resp 16; Temp 97.4(IR); Pulse Ox 98% on R/A; Weight 96.62 kg; cm10 Height 5 ft. 6 in. ; Pain 2/10; 15:51 BP 118 / 74; Pulse 84; Resp 18; Pulse Ox 100% on R/A; mb9 13:01 Body Mass Index 34.38 (96.62 kg, 167.64 cm) cm10 13:01 Pain Scale: Adult cm10 MDM: 12:53 Patient medically screened. sb4 15:56 Data reviewed: vital signs, nurses notes, radiologic studies, and as a result, I will sb4 discharge patient. Counseling: I had a detailed discussion with the patient and/or guardian regarding the historical points, exam findings, and any diagnostic results supporting the discharge/admit diagnosis, radiology results, the need for outpatient follow up, a orthopedic surgeon, to return to the emergency department if symptoms worsen or persist or if there are any questions or concerns that arise at home. 10/27 13:23 Order name: Extremity Venous Uni Ltd US; Complete Time: 15:24 sb4 10/27 13:23 Order name: US Extrmty Nonvasular Limited; Complete Time: 15:34 sb4 10/27 13:23 Order name: Knee Right 3 View XRAY; Complete Time: 15:53 sb4 Administered Medications: No medications were administered Disposition Summary: 10/28/23 16:01 Discharge Ordered Notes: Location: Home sb4 Problem: new sb4 Symptoms: have improved sb4 Condition: Stable sb4 Diagnosis - Other bursitis of knee, right knee sb4 Followup: sb4 - With: Shoaib Romano MD - When: 1 week - Reason: Recheck today's complaints, Re-evaluation by your physician Discharge Instructions: - Discharge Summary Sheet sb4 - Prepatellar Bursitis sb4 Forms: - Patient Portal Instructions sb4 - Leadership Thank You Letter sb4 Prescriptions: - meloxicam 7.5 mg Oral tablet - take 1 tablet ORAL route daily for 10 days; 10 tablet; Refills: 0, Product sb4 Selection Permitted - Prednisone 20 mg Oral Tablet - take 1 tablet ORAL route every 12 hours for 5 days; 10 tablet; Refills: 0, sb4 Product Selection Permitted Signatures: Dispatcher [employer] Kendy Quiros PA-C PA-C sb4 Nuris Calzada RN RN cm10 Corrections: (The following items were deleted from the chart) 13:03 13:03 PMHx: Diabetes mellitus; cm10 cm10 13:24 13:24 Knee Right 3 View+RAD.RAD.BRZ ordered. EDMS EDMS
[2023-10-28 16:20] VITALS: TEMP 97.4
[2023-10-28 16:22] VITALS: BP 118/74; O2SAT 100
== END 2023-10-28 16:09 | disposition home or self-care (01) ==
LOC: ER 12:45
DX: M71.561 Other bursitis, not elsewhere classified, right knee (principal)
CPT/HCPCS: 76882; 93971; 99283